=== PATIENT | female | born 1990 | race Caucasian/White ===

== ENCOUNTER 2016-12-07 23:18 | Emergency (ER) | payer OTHER ==
[2016-12-07 23:26] VITALS: RESP 16; TEMP 97.9
[2016-12-07] MEDS ORDERED: ONDANSETRON 4 MG/2 ML VIAL ONE (23:38)
[2016-12-07] MEDS ORDERED: ONDANSETRON 4 MG/2 ML VIAL IVP ONE (23:41)
--- NOTE | 2016-12-08 01:18 | EDPHY ---
H & P Stated Complaint: etoh HPI/ROS: Chief complaint: Alcohol intoxication History of present illness: This is a 26-year-old female who presents to the emergency department with EMS after being found intoxicated. She is brought here for further evaluation and care. She is nauseated and has been vomiting. On my evaluation she does not hold a full conversation. She does however admit to drinking alcohol. She states she does feel nauseous. She denies other complaints. She does appear to be heavily intoxicated. Review of systems: Unable to obtain secondary to intoxication - Personal History LMP (Females 10-55): Unknown Current Tetanus/Diphtheria Vaccine: Unsure Current Tetanus Diphtheria and Acellular Pertussis (TDAP): Unsure - Medical/Surgical History Other PMH: unknown - Social History Smoking Status: Unknown if ever smoked - Physical Exam Exam: General Appearance: Alert ENT: No hemotympanum, no andersen sign, no raccoon eyes Eyes: PERRLA Respiratory: Lungs clear to auscultation bilaterally Cardiac: Regular rate and rhythm. Gastrointestinal: Bowel sounds normal. Abdomen soft, nondistended, nontender. Neurological: Patient is alert. Strength and sensation intact and symmetrical. Skin: Head-to-toe examination does not reveal lesions consistent with trauma. Musculoskeletal: No apparent tenderness on palpation of the head, no bony deformity. The spine is without apparent tenderness, no crepitus, bony deformity or step-off. Chest wall is intact palpation without crepitus or subcutaneous air. Patient moving all extremities well. Constitutional: Initial Vital Signs Temperature (C) 36.6 C 12/07/16 23:23 Heart Rate 85 12/07/16 23:23 Respiratory Rate 16 12/07/16 23:23 Blood Pressure 138/83 H 12/07/16 23:23 O2 Sat (%) 94 12/07/16 23:23 O2 Delivery Mode Room Air Allergies/Adverse Reactions: Unable to Assess Allergy (Unverified 12/07/16 23:23) Home Medications: Medication Instructions Recorded Unobtainable 12/07/16 Medical Decision Making ED Course/Re-evaluation: Patient is seen under the supervision of my secondary supervising physician Dr. Marnie Gilmore. Patient presents to the emergency department with EMS after being found intoxicated. There is a heavy odor of alcohol on her breath. She is nontoxic. Vital signs are stable. She is observed in the emergency room and has sobered up well. She has no complaints. She will be discharged with a sober ride. Differential Diagnosis: Included but not limited to alcohol intoxication, alcohol withdrawal, polysubstance abuse - Data Points Medications Given: Discontinued Medications Ondansetron HCl (Zofran) 4 mg IVP EDNOW ONE Stop: 12/07/16 23:42 Last Admin: 12/07/16 23:41 Dose: 4 mg Departure - Departure Disposition: Home, Routine, Self-Care Clinical Impression: Alcoholic intoxication Qualifiers: Complication of substance-induced condition: uncomplicated Qualified Code(s): F10.120 - Alcohol abuse with intoxication, uncomplicated Condition: Good Instructions: Alcohol Intoxication (ED) Additional Instructions: Follow-up with a primary care doctor next week for recheck Drink plenty of fluids to stay hydrated Stop drinking alcohol If symptoms worsen or new symptoms develop return to the emergency department for recheck Referrals: Patient,NotPresent [Primary Care Provider] - As per Instructions Austen Bar MD [Medical Doctor] - As per Instructions
[2016-12-08 01:54] VITALS: BP 122/74; PULSE 66; O2SAT 96
== END 2016-12-08 01:53 | disposition home or self-care (01) ==
LOC: EDUNIT#
DX: F10.120 Alcohol abuse with intoxication, uncomplicated (principal)
CPT/HCPCS: 96374; J2405